=== PATIENT | female | born 1965 | race Caucasian/White ===

== ENCOUNTER → 2017-01-31 | Outpatient (CLI) | payer MEDICARE, OTHER ==
[~2017-01-31] MED LIST: ALBUTEROL17 GM INH; BENADRYL25 M3 PO; BENADRYL25 MG PO; BENTYL20 M1 PO; CENTRUM; CENTRUM COMPLE1 EACH PO; CETIRIZINE HCL10 MG PO; DULERA 200 MCG/13 GM IH; EPIPEN0.3 MG/0.1 IM; FISH OIL 1,0001 CAP PO; FISH OIL PO; FLEXERIL10 M1 PO; FOLIC ACID PO; FUROSEMIDE40 MG PO; IPRATR-ALBUTEROL3 ML IH; IPRATR-ALBUTEROL3 ML INH; LEVAQUIN750 M1 PO; LYRICA PO; MELOXICAM15 MG PO; MIRALAX PO; MOBIC PO; MULTIVITAMIN W/1 TAB; OMEPRAZOLE20 M2 PO; PATANOL5 ML OU; PHENERGAN25 MG PO; POTASSIUM CHLO10 ME1 PO; PRAVASTATIN SOD20 MG PO; PREDNISONE PO; PRENATAL PO; PROTONIX PO; RANITIDINE HCL150 M1 PO; STOOL SOFTENER100 M1 PO; SYMBICORT INH; TIZANIDINE HCL4 M1 PO; TOPAMAX25 MG PO; TOPIRAMATE50 MG PO; TYLENOL325 M1 PO; VITAMIN D50000 UNIT PO; VOSOL HC O10 ML OTIC AD
--- NOTE | ~2017-01-31 | CR170 ---
[facility]. [facility] A Service of [facility] RADIOLOGY TEXT RESULTS PATIENT: MARTIN LAZAR LOCATION: [facility] : 63 UNIT #: [id number] AGE: [address]: Kathleen Clifton SENIOR LEAD SOFTWARE ENGINEER SEX: F ORDER DR: [id number] [place] [id number] O MR#: [id number] Acc #: [id number] NAME: MARTIN LAZAR : 1965 SEX: F STUDY DATE/TIME: 01/31/2017 13:01 UNIT: [facility] ROOM: STUDY DESCRIPTION: CR Knee 2 Views Rt Attending Physician: Kathleen Clifton A.P.R.N. Referring Physician: Kathleen Clifton A.P.R.N. Ordering Physician: Kathleen Clifton A.P.R.N. Primary Care Physician: Kathleen Clifton A.P.R.N. MEDICAL IMAGING REPORT This report is preliminary unless electronic signature is present. EXAM 2 views right knee INDICATIONS Right knee pain for 2 weeks FINDINGS No acute fracture or subluxation of the right knee is identified. Patient does have some degenerative changes most pronounced within the patellofemoral compartment. There is no suprapatellar effusion. No aggressive osseous abnormalities are seen. IMPRESSION No acute disease. Dictated by... Brittany Jimenez M.D. THIS IS AN ELECTRONICALLY VERIFIED REPORT Brittany Jimenez M.D. at 02/01/2017 12:59 PM AFF/to TD: 01/31/2017 20:42 JOB #: [id number] MEDICAL IMAGING REPORT Page 1 of 1
--- NOTE | ~2017-01-31 | CR181 ---
[facility] A Service of [facility] RADIOLOGY TEXT RESULTS PATIENT: MARTIN LAZAR LOCATION: [facility] : 63 UNIT #: [id number] AGE: [address]: Kathleen Clifton SENIOR WINDOWS SYSTEMS ADMINISTRATOR SEX: F ORDER DR: [id number] [place] [id number] O MR#: [id number] Acc #: [id number] NAME: MARTIN LAZAR : 1965 SEX: F STUDY DATE/TIME: 01/31/2017 13:01 UNIT: [facility] ROOM: STUDY DESCRIPTION: CR Lumbar Spine 2 or 3 Views Attending Physician: Kathleen Clifton A.P.R.N. Referring Physician: Kathleen Clifton A.P.R.N. Ordering Physician: Kathleen Clifton A.P.R.N. Primary Care Physician: Kathleen Clifton A.P.R.N. MEDICAL IMAGING REPORT This report is preliminary unless electronic signature is present. EXAM 3 views lumbar spine. INDICATIONS Low back pain radiating into the right leg. FINDINGS No acute fracture or subluxation of the lumbar spine is identified. There is some mild discogenic degenerative disease and there may be some facet arthropathy at L5-S1. No aggressive osseous abnormalities are seen. Patient does have some degenerative changes involving the sacroiliac joints, left probably greater than right. IMPRESSION No acute findings. Dictated by... Brittany Jimenez M.D. THIS IS AN ELECTRONICALLY VERIFIED REPORT Brittany Jimenez M.D. at 02/01/2017 12:59 PM AFF/psc TD: 01/31/2017 20:27 JOB #: [id number] MEDICAL IMAGING REPORT Page 1 of 1
== END | disposition home or self-care (01) ==
LOC: SRAD 12:57
DX: M54.5 Low back pain (principal); M25.561 Pain in right knee
CPT/HCPCS: 72100; 73560